=== PATIENT | male | born 1940 | race Caucasian/White ===

== ENCOUNTER 2016-10-29 10:44 | Day surgery (SDC) | payer MEDICARE, BC ==
[~2016-10-29 10:44] MED LIST: Cefuroxime 10 MG/ML SYRINGE EYERT SCH; Lidocaine 1% PF 2 ML SDV INJECT SCH; Pilocarpine 4% Ophth Soln 15 ML Bot EYERT SCH
[2016-10-29] MEDS: Polymyxin B/Trimethoprim 10 ML Bottle EYERT SCH ×3 (11:45→13:47)
[2016-10-29] MEDS: Brimonidine 0.2% Ophth Soln 5 ML Bottle EYERT SCH ×3 (11:50→13:47)
[2016-10-29] MEDS: Phenylephrine 2.5% Ophth Soln 2 ML Bot EYERT SCH ×5 (11:55→13:26)
--- NOTE | 2016-10-29 12:16 | PCM.PREANE ---
Preanesthetic Assessment - Anesthesia/Transfusion/Family Hx Anesthesia History: No Prior Anesthesia Family History of Anesthesia Reaction: No Transfusion History: No Prior Transfusion(s) - Review of Systems General: No Symptoms Pulmonary: No Symptoms Cardiovascular: No Symptoms Gastrointestinal: No symptoms Neurological: Gait Disturbance (due to stroke in 1999) Other: Reports: Easy Bruising, Diabetes - Physical Assessment NPO Status Date: 10/28/16 NPO Status Time: 23:00 Pulse: 48 O2 Sat by Pulse Oximetry: 96 Respiratory Rate: 16 Blood Pressure: 155/56 Temperature: 97.4 C Vital Signs: Last Vital Signs Temp 36.3 C 10/29/16 11:45 Pulse 48 L 10/29/16 11:45 Resp 16 10/29/16 11:45 BP 155/56 H 10/29/16 11:45 Pulse Ox 96 10/29/16 11:45 Height: 1.68 m Weight: 81.647 kg ASA Class: 3 Mental Status: Alert & Oriented x3 Dentition: Reports: Broken Tooth/Teeth, Caries Thyro-Mental Finger Breadths: 3 Mouth Opening Finger Breadths: 3 ROM/Head Extension: Limited/Partial Lungs: Clear to auscultation, Normal respiratory effort Cardiovascular: Regular Rate, Regular Rhythm - Lab Values: Laboratory Last Values POC Glucose 254 mg/dL (83-110) H 10/29/16 11:46 - Allergies Allergies/Adverse Reactions: Allergies Allergy/AdvReac Type Severity Reaction Status Date / Time No Known Allergies Allergy Verified 10/28/16 15:22 - Blood Blood Available: No Product(s) Available: None - Anesthesia Plan Pre-Op Medication Ordered: Other (pt took his own long lasting insuline) - Acknowledgements Anesthesia Type Planned: MAC Pt an Appropriate Candidate for the Planned Anesthesia: Yes Alternatives and Risks of Anesthesia Discussed w Pt/Guardian: Yes Pt/Guardian Understands and Agrees with Anesthesia Plan: Yes PreAnesthesia Questionnaire Cardiovascular History: Reports: Stents - SUBSTANCE USE Smoking Status *Q: Never Smoker Tobacco Use Within Last Twelve Months: No Second Hand Smoke Exposure: No Days Per Week of Alcohol Use: 0 Number of Drinks Per Day: 0 Total Drinks Per Week: 0 Recreational Drug Use History: No - HOME MEDS Home Medications: Home Meds Aspirin/Calcium Carbonate/Mag [Aspirin Buffered 325 mg Tab] 325 mg PO DAILY [History] Clopidogrel Bisulfate [Clopidogrel] 75 mg PO DAILY 10/28/16 [History] Ezetimibe [Zetia] 10 mg PO DAILY 10/28/16 [History] Insulin Aspart [NovoLOG] 18 units SQ BID 10/28/16 [History] Insulin Glarg,Human.Rec.Analog [LantUS Solostar] 25 units SQ QAM 10/28/16 [ History] Lisinopril 20 mg PO DAILY 10/28/16 [History] Nitroglycerin 0.4 mg SL ASDIRECTED PRN 10/28/16 [History] Sertraline [Zoloft] 50 mg PO DAILY 10/28/16 [History] Triamterene/Hydrochlorothiazid [Triamterene-HCTZ 37.5-25 MG] 1 tab PO DAILY [History] amLODIPine [Norvasc] 10 mg PO DAILY 10/28/16 [History] atorvaSTATin Calcium [Atorvastatin Calcium] 80 mg PO BEDTIME 10/28/16 [History] sitaGLIPtin Phosphate [Januvia] 100 mg PO DAILY 10/28/16 [History] - CURRENT (IN HOUSE) MEDS Current Meds: Current Medications Brimonidine Tartrate (Alphagan 0.2% Ophth Soln) 0 ml EYERT ASDIRECTED YARELY Stop: 10/29/16 18:00 Last Admin: 10/29/16 11:50 Dose: 1 drop Cefuroxime Sodium (Zinacef) 0 mg EYERT ASDIRECTED YARELY Stop: 10/29/16 18:00 Lidocaine HCl (Xylocaine-Mpf 1%) 1 ml INJECT ASDIRECTED YARELY Stop: 10/29/16 18:00 Phenylephrine HCl (Burt-Synephrine 2.5% Ophth Soln) 0 ml EYERT ASDIRECTED YARELY Stop: 10/29/16 18:00 Last Admin: 10/29/16 12:05 Dose: 1 drop Pilocarpine HCl (Pilocar 4% Ophth Soln) 0 ml EYERT ASDIRECTED YARELY Stop: 10/29/16 18:00 Polymyxin/Trimethoprim Sulfate (Polytrim Ophth Soln) 0 ml EYERT ASDIRECTED YARELY Stop: 10/29/16 18:00 Last Admin: 10/29/16 11:45 Dose: 1 drop Tetracaine (Pontocaine 0.5% Ophth Drops) 0 ml EYERT ASDIRECTED YARELY Stop: 10/29/16 18:00 Tropicamide (Mydriacyl 1% Oph Soln) 0 ml EYERT ASDIRECTED YARELY Stop: 10/29/16 18:00 Last Admin: 10/29/16 12:00 Dose: 1 drop
[2016-10-29] MEDS: Tetracaine 0.5% 2 ML Bottle EYERT SCH ×2 (13:16→13:33)
--- NOTE | 2016-10-29 13:48 | PCM48HPAN ---
Post Anesthesia Note - EVALUATION WITHIN 48HRS OF ANESTHETIC Vital Signs in Normal Range: Yes Patient Participated in Evaluation: Yes Respiratory Function Stable: Yes Airway Patent: Yes Cardiovascular Function Stable: Yes Hydration Status Stable: Yes Pain Control Satisfactory: Yes Nausea and Vomiting Control Satisfactory: Yes Mental Status Recovered: Yes
[2016-10-29 14:00] VITALS: BP 129/56
== END 2016-10-29 13:55 | disposition home or self-care (01) ==
LOC: JD.SDS 10:44
PROVIDERS: ATTEND Ophthalmology
DX: E10.36 Type 1 diabetes mellitus with diabetic cataract (principal); H25.813 Combined forms of age-related cataract, bilateral; H40.003 Preglaucoma, unspecified, bilateral; H02.834 Dermatochalasis of left upper eyelid; H02.831 Dermatochalasis of right upper eyelid; E10.3299 Type 1 diabetes mellitus with mild nonproliferative diabetic retinopathy without macular edema, unspecified eye; H21.81 Floppy iris syndrome; H21.40 Pupillary membranes, unspecified eye; I10 Essential (primary) hypertension; E78.00 Pure hypercholesterolemia, unspecified; Z86.73 Personal history of transient ischemic attack (TIA), and cerebral infarction without residual deficits; Z79.4 Long term (current) use of insulin; Z79.82 Long term (current) use of aspirin; Z79.899 Other long term (current) drug therapy
CPT/HCPCS: 66982; 82962; A9270; J0697; C1780

== ENCOUNTER 2024-11-02 15:22 | Emergency (ER) | payer MEDICARE, BC ==
[2024-11-02] MEDS: Labetalol 100 MG/20 ML MDV IVPUSH ONE ×2 (15:37→16:29)
[2024-11-02 15:40] VITALS: PULSE 94
[2024-11-02 15:51] LABS: BASOPHILS PERCENT AUTO 0.1 % (0.0-1.0); EOSINOPHILS PERCENT AUTO 0.1 % (0.0-6.0); HEMATOCRIT 33.7 % (42.0-52.0); HEMOGLOBIN 11.4 gm/dl (14.0-18.0); IMMATURE GRAN PERCENT AUTO 0.6 % (0.0-0.4); LYMPHOCYTES ABSOLUTE AUTO 0.6 K/mm3 (1.0-4.8); LYMPHOCYTES PERCENT AUTO 3.6 % (24.0-44.0); MEAN CORPUSCULAR HEMOGLOBIN 29.7 pg (28.0-32.0); MEAN CORPUSCULAR HGB CONC 33.8 g/dl (32.0-36.0); MEAN CORPUSCULAR VOLUME 87.8 fl (83.0-99.0); MEAN PLATELET VOLUME 11.5 fl (9.4-12.4); MONOCYTES ABSOLUTE AUTO 0.8 K/mm3 (0.0-0.8); MONOCYTES PERCENT AUTO 4.5 % (0.0-8.0); NEUTROPHILS ABSOLUTE AUTO 15.7 K/mm3 (1.8-7.7); NEUTROPHILS PERCENT AUTO 91.1 % (41.0-71.0); PLATELET COUNT,PLT 185 K/mm3 (150-400); RED BLOOD CELL COUNT 3.84 M/mm3 (4.52-5.90); WHITE BLOOD CELL COUNT,WBC 17.23 K/mm3 (3.9-11.3)
[2024-11-02 16:10] LABS: INR 1.11; PROTHROMBIN TIME 11.7 SECONDS (9.7-12.0)
[2024-11-02 16:12] LABS: PTT,PARTIAL THROMBOPLSTIN TIME 21.4 SECONDS (21.7-31.4)
[2024-11-02] MEDS: Iopamidol 755 Mg/ML 100 ML Bottle IVPUSH ONE (16:13)
[2024-11-02] MEDS: Sodium Chloride 0.9% 100 ML IV SCH (16:13)
[2024-11-02 16:18] LABS: A/G RATIO 0.9 (1-2); ALBUMIN 3.5 g/dl (3.4-5.0); ANION GAP 21.5 (5-15); BUN/CREATININE RATIO 22.5 (14-18); CALCIUM 8.8 mg/dL (8.5-10.1); CREATININE 3.2 mg/dL (0.7-1.3); EST CRCL DRUG DOSING (CG) 14.95 mL/min; PROTEIN TOTAL,TP 7.4 g/dl (6.4-8.2)
[2024-11-02 16:23] LABS: POTASSIUM,K 4.5 mEq/L (3.5-5.1)
[2024-11-02] MEDS: cefTRIAXone 2 GM Vial IVPUSH ONE (16:40)
[2024-11-02] MEDS: Sodium Chloride 0.9% 10 ML Syringe FLUSH PRN (16:41)
[2024-11-02 17:14] LABS: LACTIC ACID 2.6 mmol/L (0.4-2.0)
[2024-11-02] MEDS: Sodium Chloride 0.9% 1,000 ML IV ONE (17:50)
[2024-11-02] MEDS: niCARdipine HCl 25 MG in Sodium Chloride 0.9% 250 ML IV SCH (17:50)
[2024-11-02] MEDS: Aspirin 300 MG Supp RECTAL ONE (17:50)
[2024-11-02 18:43] VITALS: BP 149/106
== END 2024-11-02 19:34 ==
LOC: JD.ED 15:22
DX: I63.9 Cerebral infarction, unspecified (principal); J18.9 Pneumonia, unspecified organism; I13.0 Hypertensive heart and chronic kidney disease with heart failure and stage 1 through stage 4 chronic kidney disease, or unspecified chronic kidney disease; I50.9 Heart failure, unspecified; N18.9 Chronic kidney disease, unspecified; E10.22 Type 1 diabetes mellitus with diabetic chronic kidney disease; I25.10 Atherosclerotic heart disease of native coronary artery without angina pectoris; E78.00 Pure hypercholesterolemia, unspecified; Z95.5 Presence of coronary angioplasty implant and graft; Z79.4 Long term (current) use of insulin; Z79.899 Other long term (current) drug therapy; Z79.84 Long term (current) use of oral hypoglycemic drugs; Z79.02 Long term (current) use of antithrombotics/antiplatelets
CPT/HCPCS: 36415; 70450; 70496; 70498; 71045; 73070; 80053; 82550; 83605; 84484; 85025; 85610; 85730; 86140; 87040; 93005; 96365; 96375; 96376; 99285; A9270; J0696; J1920; J2404; J7030; Q9967